=== PATIENT | male | born 1990 | race Two or more races ===

== ENCOUNTER 2025-08-22 07:01 | Emergency (ER) | payer MEDICAID, SELFPAY ==
[2025-08-22 07:03] VITALS: PULSE 70; RESP 10; O2SAT 99
--- NOTE | 2025-08-22 07:03 | XR_ITS ---
Examination: CT brain head without contrast. 2-D sagittal coronal reconstructions Date and time of exam: August 22, 2025, 0734 hours, comparison December 18, 2007 INDICATIONS: Injury to the head today, head pain CTDI: vol (mGy): 49.2 DLP: (mGycm): 1021 Technique: Multiple CT axial sections of the brain have been obtained, 5 mm slice thickness. Contrast has not been administered. 2-D sagittal, coronal reconstructions have been obtained Low dose protocols were performed. One or more of the following dose reduction techniques were used; automated exposure control, adjustment of the mA and/or KV according to patient size, use of iterative reconstruction technique. Findings: No significant ventricular enlargement. Intra-axial or extra-axial hemorrhage density is not seen. No mass effect or midline shift Basal cisterns are not remarkable. Fourth ventricle is midline. Cranial vault intact. Impression: Negative for acute hemorrhage, mass effect or midline shift
[2025-08-22 07:08] VITALS: BP 135/82; PULSE 82; RESP 18; TEMP 36.8; O2SAT 99
--- NOTE | 2025-08-22 07:08 | EDNOTE_ITS ---
Altered Mental Status RME/HPI General Chief Complaint: Altered Mental Status Stated Complaint: HEAD INJURY Time Seen by Provider: 08/22/25 07:03 Source: patient and EMS Arrival date/time: 08/22/25 07:01 Mode of arrival: EMS Limitations: altered mental status RME / HPI complaint: altered mental status Time: 07:33 Timing confirmed by: other Severity: mild Consistency of symptoms: unknown Context: unknown Associated symptoms: denies other symptoms Treatments prior to arrival: glucose RME / HPI narrative: Patient was in custody with the police and Exam: Patient was in custody with the police and while he was in the car he was banging his head against the door until he lost consciousness There was no bleeding no hematoma no other injury Patient arrived by the paramedics and as soon as he was put on the gurney patient was awake fully responsive but he was pretending that he is not answering questions or physical normal pupils were equal in all his extremities were open he moving well patient responded to painful stimulus with purposeful movements with strong movements when he woke up 1 day [place] catheter was in serted Impression: Altered mental status questionable Mild head injury Possible drug use Possible alcohol use Related Data Home Medications ?Medication ?Instructions ?Recorded ?Confirmed No Known Home Medications 07/11/1906/25 Previous Rx's ?Medication ?Instructions ?Recorded hydrocodone 5 mg-acetaminophen 325 1 tab PO Q6H #12 ta bs 07/12/19 mg tablet ([place]) ibuprofen 600 mg tablet 600 mg PO Q6H #30 tabs 07/12 Allergies Allergy/AdvReac Type Severity Reaction Status Date / Time No Known Allergies Allergy Verified 07/11/19 23:56 Review of Systems Review of Systems Systems Reviewed: All systems reviewed, normal except as documented Past Medical History Social History SMOKING STATUS: Never smoker ED Exam Narrative Physical exam: General, patient is alert oriented x 4 Not in distress well-nourished Head and neck, atraumatic normocephalic Pupils equal reactive, ENT exam no mucous membranes Neck is supple tracheal stenosis was not large Chest, no chest tenderness Normal air entry bilaterally No added sounds Cardiovascular, normal heart sounds, no murmurs, no gallop, regular rate and rhythm Abdominal, soft nontender no enlarged organs Normal renal angles, bowel sounds are normal no organomegaly Genitourinary, no abdominal hernias, normal genitalia Lower extremity, no edema, no redness, no deformity Musculoskeletal, no joint effusion, no joint tenderness, Neuro, muscle power equal bilaterally, cranial nerves intact, no sensory deficits, no ataxia Skin, no rash no petechiae General Limitations: Present altered mental status Eye Eye exam: Present normal appearance, PERRL and EOMI Course Course Course Narrative: Patient had a [place] catheter which woke him up totally Labs were sent out for CBC chemistry UA urine drug screen also ordered for CT of the head Quality Measures none Orders Category Date Time Status IV [Insert IV] NOW Care 08/22/25 07:[address] head/brain wo con Stat Exams 08/22/25 07:03 Completed Alcohol, Blood Medical Stat Lab 08/22/25 07:10 Completed CBC [CBC] Stat Lab 08/22/25 08:56 Completed CMP [Comprehensive Metabolic Panel] Stat Lab 08/22/25 07:10 Completed Drug Screen,Urine Stat Lab 08/22/25 07:10 Completed Troponin I Stat Lab 08/22/25 07:10 Completed UA, C/S IF [Urinalysis, C/S if Indicated] Stat Lab 08/22/25 07:10 Completed Vital Signs Vital signs: Vital Signs Temperature 98.3 F 08/22/25 07:08 Pulse Rate 82 08/22/25 07:08 Respiratory Rate 18 08/22/25 07:08 Blood Pressure 135/82 H 08/22/25 07:08 Pulse Oximetry (%) 99 08/22/25 07:08 Oxygen Delivery Method Room Air 08/22/25 07:08 Normal vital signs Altered Mental Status MDM Narrative MDM Narrative:: I reviewed labs and imaging. Labs are unremarkable. UDS is remarkable for methamphetamine, benzodiazepines, and Marijuana. Patient is awake and talking, answering questions appropriately. Patient data External records reviewed:: [facility] previous records and EMS form Clinical information provided by:: patient, EMS and law enforcement Social determinants that could affect healthcare access:: none Patient has the following chronic illnesses:: None reported How is presenting disease/condition affected by chronic disease/condition?: no chronic disease Evaluation data The following diagnostics were reviewed and interpreted by me:: lab results and radiology exam(s) Lab and/or radiology exams considered but not ordered:: None Interpretation Summary: Ordering Physician: Ta Stephen MD Date of Service: 08/22/25 Procedure(s): CT head/brain wo con Accession Number(s): [id number] cc: Ta Stephen MD; Artem Samuels MD; NO PRIMARY/FAMILY,PHYSICIAN~ Examination: CT brain head without contrast. 2-D sagittal coronal reconstructions Date and time of exam: August 22, 2025, 0734 hours, comparison December 18, 2007 INDICATIONS: Injury to the head today, head pain CTDI: vol (mGy): 49.2 DLP: (mGycm): 1021 Technique: Multiple CT axial sections of the brain have been obtained, 5 mm slice thickness. Contrast has not been administered. 2-D sagittal, coronal reconstructions have been obtained Low dose protocols were performed. One or more of the following dose reduction techniques were used; automated exposure control, adjustment of the mA and/or KV according to patient size, use of iterative reconstruction technique. Findings: No significant ventricular enlargement. Intra-axial or extra-axial hemorrhage density is not seen. No mass effect or midline shift Basal cisterns are not remarkable. Fourth ventricle is midline. Cranial vault intact. Impression: Negative for acute hemorrhage, mass effect or midline shift Dictated By: Artem Samuels MD Signed By: <Electronically signed by Artem Samuels MD in [place]> 08/22/25 0834 Medications / Prescriptions Medications or Prescriptions considered but not ordered:: none Medication administrations:: None Consultations Consultation(s) initiated? (list below): No Diagnosis Most likely diagnosis given after review of the tests above:: Head injury Admission Indicated Admission indicated?: not indicated Explain why admission is indicated or not indicated:: With significant improvement and no condition needing emergent intervention, there was no indication for admission. Admission Request Was there a request for admission?: No Disposition Plan Disposition Plan: Discharge Discharge Attestation Discharge Attestation: The patient and all family members were given an opportunity to ask questions and understood the discharge instructions. Discharge instructions specifically effects, indications for sooner follow up or return to the emergency department, and the expected course of current diagnosis. Patient condition: Stable Discharge Plan Plan Patient Disposition: Detention/Court/Law Patient condition on transfer: Stable Prescriptions/Referrals Prescriptions/Med Rec: No Action No Known Home Medications ibuprofen 600 mg tablet 600 mg PO Q6H Qty: 30 0RF hydrocodone-acetaminophen [[place]] 5-325 mg tablet 1 tab PO Q6H MDD 6 Qty: 12 0RF Referrals: No Primary/Family,Physician [Primary Care Provider] - In 1 week Problem List Clinical Impression: Minor closed head injury Patient/Caregiver Discharge Instructions Discharge Activity: resume usual activities Education Materials: ED Head Injury (Adult) Print Language: Algerian
--- NOTE | 2025-08-22 07:10 | PC.NURSE ---
Pt. here from [place] from home, pt. was being arrested by [place] [employer] and hit his head in the back of the stroboscope operator car, pt. wouldn't respond upon arrival to ER, IV was started and Dr. Wilson bedside, RT bedside, martina inserted and all the sudden pt. states I don't want a fucking catheter. Pt. then started talking and responding to questions asked. [place] [employer] Officers Pancho Portillo bedside with pt.
[2025-08-22 07:46] LABS: Collection Type, Urine Clean Catch; Squamous Epithelial Cell,Urine 0 /hpf (0-5)
[2025-08-22 07:59] LABS: Bilirubin,Urine Negative (Negative); Blood,Urine Negative (Negative); Clarity,Urine Clear (Clear/Hazy); Color,Urine Yellow (Lt Yel-Yel); Culture Indicated,Urine Not Indicated; Glucose, Urine 4+ (Negative); Ketones,Urine Negative (Negative); Leukocyte Esterase,Urine Negative (Negative); Nitrite,Urine Negative (Negative); PH,Urine 5.5 (5.0-7.0); Protein,Urine Negative (Neg - Trace); RBC,Urine 7 /hpf (0-3); Specific Gravity,Urine 1.033 (1.001-1.035); Transitional Epi Cells,Urine 1 /hpf (0-5); Urobilinogen,Urine Negative mg/dL (0.0-1.0); WBC,Urine 2 /hpf (0-5)
[2025-08-22 08:14] LABS: Alanine Aminotransferase 27 U/L (10-49); Albumin, Serum 4.5 gm/dL (3.5-5.0); Albumin/Globulin Ratio 1.8 (1.2-2.2); Alcohol, Blood Medical < 3.0 mg/dL (0-10.0); Alkaline Phosphatase 116 U/L (46-116); Anion Gap 8 (7-16); Aspartate Amino Transferase 26 U/L (0-34); BUN/Creatinine Ratio 15 Ratio (12-20); Bilirubin,Total 0.5 mg/dL (0.3-1.2); Blood Urea Nitrogen 18 mg/dL (9-23); Calcium 8.8 mg/dL (8.3-10.6); Calcium (Corrected) 8.8 mg/dL (8.5-10.1); Carbon Dioxide 28.0 mMol/L (20.0-31.0); Chloride 107 mMol/L (98-107); Creatinine (Component) 1.2 mg/dL (0.6-1.3); Globulin 2.5 gm/dL (2.3-3.5); Glucose 174 mg/dL (74-106); Osmolality,Calculated 290 (275-295); Potassium 3.8 mMol/L (3.4-5.1); Sodium 143 mMol/L (136-145); Total Protein 7.0 gm/dL (5.7-8.2); Troponin I < 0.002 ng/mL (0.0-0.045); eGFR > 60 See Note
[2025-08-22 08:15] LABS: Amphetamine/Methamp Scrn,U Positive (Negative); Barbiturate Screen,Urine Negative (Negative); Benzodiazepines Screen,Urine Positive (Negative); Benzoylecgonine Screen, Ur Negative (Negative); Fentanyl Screen,Urine Negative (Negative); Opiate Screen,Urine Negative (Negative); THC Screen,Urine Positive (Negative)
[2025-08-22 09:14] LABS: Basophils # (Auto) 0.1 Thou/mm3 (0.0-0.2); Basophils % (Auto) 1 % (0-2.5); Eosinophils # (Auto) 0.2 Thou/mm3 (0.0-0.5); Eosinophils % (Auto) 2 % (0-10); Hematocrit 38.9 % (41.0-53.0); Hemoglobin 12.6 g/dL (13.5-16.0); Immature Granulocytes Auto 0.03 Thou/mm3 (0.00-0.00); Lymphocytes # (Auto) 1.9 Thou/mm3 (1.0-4.8); Lymphocytes % (Auto) 20 % (10-50); Mean Corpuscular HGB Conc 32.4 g/dl (31.0-37.0); Mean Corpuscular Hemoglobin 29.7 pg (25.0-35.0); Mean Corpuscular Volume 92 fL (80-100); Monocytes # (Auto) 0.6 Thou/mm3 (0.0-0.8); Monocytes % (Auto) 7 % (0-12); Neutrophils # (Auto) 6.4 Thou/mm3 (1.8-7.7); Neutrophils % (Auto) 70 % (37-80); Nucleated Red Blood Cell # 0.00 Thou/mm3 (0.00-0.00); Nucleated Red Blood Cell % 0 /100 WBC (0); Platelet Count 323 Thou/mm3 (140-440); RDW Standard Deviation 45.4 fL (35.1-43.9); Red Blood Count 4.24 Miln/mm3 (4.50-5.90); White Blood Count 9.2 Thou/mm3 (3.8-10.6)
[2025-08-22 09:34] VITALS: BP 122/84; PULSE 77; RESP 18; TEMP 36.8; O2SAT 98
[2025-08-22 10:03] VITALS: BP 137/79; PULSE 69; RESP 17; TEMP 36.7; O2SAT 95
== END 2025-08-22 10:03 ==
PROVIDERS: Emergency Provider Emergency Medicine
DX: Z02.89 Encounter for other administrative examinations (principal); S09.90XA Unspecified injury of head, initial encounter; W22.8XXA Striking against or struck by other objects, initial encounter; Y92.810 Car as the place of occurrence of the external cause
CPT/HCPCS: 36415; 51701; 70450; 80053; 80307; 80320; 81001; 84484; 85025; 99283; G0480